=== PATIENT | female | born 1980 | race African-American/Black ===

== ENCOUNTER 2023-11-18 15:28 | Emergency (ER) | payer MEDICARE, MEDICAID ==
[~2023-11-18] VITALS: Ht 154.9 cm; Wt 60.0 kg
[~2023-11-18 15:28] MED LIST: AMIODARONE HCL 50MG/ML 3ML VIAL IV ONE; CALCIUM CHLORIDE 1GM/10ML SYR IV ONE
[2023-11-18] MEDS: SODIUM CHLORIDE 0.9% 1000ML BAG (SEPSIS BOLUS) IV ONE (15:45)
[2023-11-18] MEDS: NOREPINEPHRINE 8MG/250ML PMX 250 ML IV ONE (15:45)
[2023-11-18] MEDS ORDERED: NOREPINEPHRINE 8MG/250ML PMX 250 ML IV ONE (15:46)
[2023-11-18 16:06] VITALS: PULSE 130; RESP 16
[2023-11-18 16:29] LABS: CHLORIDE 133 mEq/L (98-107); POTASSIUM 4.3 mEq/L (3.5-5.1)
[2023-11-18 16:30] LABS: CARBON DIOXIDE 20 mEq/L (21-32)
[2023-11-18 16:31] LABS: CALCIUM 7.8 mg/dL (8.7-10.4)
[2023-11-18 16:36] LABS: CREATININE 2.1 mg/dL (0.6-1.0); GLUCOSE 203 mg/dL (70-105); UREA NITROGEN BLOOD 53 mg/dL (9-23)
[2023-11-18 16:42] LABS: SODIUM 180 mEq/L (136-145); TROPONIN I HIGH SENSITIVITY 89 ng/L (3.0-34)
[2023-11-18 16:44] LABS: BG BASE EXCESS -18.5 mmol/L (-2.0-2.0); BG CARBOXYHEMOGLOBIN 0.3 % (0.5-1.5); BG DEOXYHEMOGLOBIN 0.3 % (0.0-5.0); BG FRACTION INSPIRED OXYGEN 100; BG HCO3 ACT 11.7 mmol/L (22.0-26.0); BG METHEMOGLOBIN 0.1 % (0.0-1.5); BG OXYGEN SATURATION 99.7 % (92.0-98.5); BG OXYHEMOGLOBIN 99.3 % (94.0-97.0); BG PCO2 46.1 mmHg (35.0-45.0); BG PH 7.024 (7.350-7.450); BG PO2 418.3 mmHg (75.0-100.0); BG SAMPLE SITE LEFT BRACHIAL; BG TOTAL HEMOGLOBIN 11.2 g/dL (12.0-18.0); BG VENT MODE VENT - AC
[2023-11-18 16:54] LABS: BASOPHILS % 0.4 % (0.0-2.0); DIFFERENTIAL COMMENT 0; EOSINOPHILS % 2.5 % (0.0-5.0); HEMATOCRIT. 35.7 % (36.0-48.0); HEMOGLOBIN. 10.4 g/dL (12.0-16.0); LYMPHOCYTES % 14.1 % (20.0-50.0); MEAN CORPUSCULAR HEMOGLOBIN 27.1 pg (28.0-32.0); MEAN CORPUSCULAR HGB CONC 29.2 g/dL (31.0-37.0); MEAN CORPUSCULAR VOLUME 92.6 fL (81.0-99.0); MEAN PLATELET VOLUME 9.9 fl (7.4-10.4); PLATELET 253 x1000/uL (130-400); RED BLOOD CELL COUNT 3.85 mill/uL (4.2-5.4); WHITE BLOOD COUNT 23.4 x1000/uL (4.5-11.0)
[2023-11-18 16:57] LABS: HCG SCREEN NEGATIVE
[2023-11-18] MEDS ORDERED: LANS30CA55 MT (17:00)
[2023-11-18] MEDS ORDERED: LACO50TA2 MT (17:00)
[2023-11-18] MEDS ORDERED: TRIH5TAB4 PO (17:00)
[2023-11-18] MEDS ORDERED: CLON2TAB11 MT (17:00)
[2023-11-18 17:10] VITALS: PULSE 109; RESP 20
[2023-11-18] MEDS: VANCOMYCIN 1G PREMIX 200 ML IV ONE (17:23)
[2023-11-18] MEDS: PROPOFOL 10MG/ML 100ML 100 ML IV STA (17:25)
[2023-11-18] MEDS: AZTREONAM 1 G in DEXTROSE 5% WATER 50 ML IV STA (17:43)
[2023-11-18 18:38] LABS: ALANINE AMINOTRANSFERASE 136 IU/L (10-49); ALBUMIN 2.9 g/dL (3.2-4.8); ASPARTATE AMINOTRANSFERASE 189 IU/L (<34); BILIRUBIN DIRECT 0.1 mg/dL (<=3.0); BILIRUBIN TOTAL 0.3 mg/dL (0.1-1.0); PROTEIN TOTAL 6.2 g/dL (6.0-8.3)
[2023-11-18 18:53] VITALS: O2SAT 98
[2023-11-18] MEDS ORDERED: CLONIDINE 0.1MG TABLET PO PRN (19:15)
[2023-11-18] MEDS ORDERED: DIPHENHYDRAMINE 50MG/ML VIAL IV PRN (19:15)
[2023-11-18] MEDS ORDERED: MAGNESIUM/ALUMINUM HYDROXIDE/SIMETHICONE 30ML UDC PO PRN (19:15)
[2023-11-18] MEDS ORDERED: ONDANSETRON HCL 4MG/2ML INJ IV PRN (19:15)
[2023-11-18] MEDS ORDERED: DEXTROSE 50% WATER 50ML SYRINGE IV PRN (19:15)
[2023-11-18] MEDS ORDERED: GUAIFENESIN 200MG/10ML SUGAR FREE UDC PO PRN (19:15)
[2023-11-18] MEDS ORDERED: IPRATROPIUM/ALBUTEROL 0.5-3(2.5)MG/3ML NEB HHN PRN (19:15)
[2023-11-18] MEDS ORDERED: ACETAMINOPHEN 650MG/20.3ML UDC GT PRN ×2 (19:15)
[2023-11-18 19:46] LABS: CLARITY URINE CLOUDY (CLEAR); COLOR URINE YELLOW (YELLOW); GLUCOSE URINE NEGATIVE (NEGATIVE); KETONES URINE NEGATIVE (NEGATIVE); LEUKOCYTE ESTERASE URINE NEGATIVE (NEGATIVE); NITRITE URINE NEGATIVE (NEGATIVE); OCCULT BLOOD URINE 2+ (NEGATIVE); PROTEIN URINE 2+ (NEGATIVE); SPECIFIC GRAVITY URINE 1.015 (1.005-1.030)
[2023-11-18 20:00] LABS: LACTIC ACID > 15.0 mmol/L (0.4-2.0)
[2023-11-18 20:02] LABS: SQUAMOUS EPITHELIAL CELL URINE 1+ /lpf (RARE/1+)
[2023-11-18 20:03] LABS: WBC URINE 0-2 /hpf (0-2)
[2023-11-18 20:04] LABS: BACTERIA URINE 3+
[2023-11-18] MEDS: DEXTROSE 5% WATER 1,000 ML IV SCH (20:15)
[2023-11-18] MEDS: WATER FOR IRRIGATION,STERILE 1,000 ML IRRIG.SOLN IR ONE (20:15)
[2023-11-18] MEDS: LEVOFLOXACIN 500MG PREMIX 100 ML IV SCH (20:20)
[2023-11-18 20:30] VITALS: PULSE 108; RESP 20
[2023-11-18] MEDS: BLOOD SUGAR DIAGNOSTIC STRIP TEST SCH (20:30)
[2023-11-18] MEDS: INSULIN LISPRO 100 UNITS/ML SUBCUT SCH (20:35)
[2023-11-18] MEDS: NOREPINEPHRINE 8MG/250ML PMX 250 ML IV PRN (20:39)
[2023-11-18 20:51] LABS: CHLORIDE 131 mEq/L (98-107); POTASSIUM 4.1 mEq/L (3.5-5.1)
[2023-11-18 20:52] LABS: CARBON DIOXIDE 12 mEq/L (21-32)
[2023-11-18 20:56] LABS: BG BASE EXCESS -19.9 mmol/L (-2.0-2.0); BG CARBOXYHEMOGLOBIN 0.3 % (0.5-1.5); BG DEOXYHEMOGLOBIN 2.7 % (0.0-5.0); BG FRACTION INSPIRED OXYGEN 60; BG HCO3 ACT 9.5 mmol/L (22.0-26.0); BG OXYGEN SATURATION 97.3 % (92.0-98.5); BG PCO2 34.6 mmHg (35.0-45.0); BG PH 7.057 (7.350-7.450); BG PO2 121.2 mmHg (75.0-100.0); BG SAMPLE SITE RIGHT FEMORAL; BG TOTAL HEMOGLOBIN 13.7 g/dL (12.0-18.0); BG VENT MODE VENT - AC
[2023-11-18 20:57] LABS: CREATININE 2.3 mg/dL (0.6-1.0); GLUCOSE 295 mg/dL (70-105); TRIGLYCERIDE 110 mg/dL (0-150); UREA NITROGEN BLOOD 52 mg/dL (9-23)
[2023-11-18 20:58] LABS: LDL CHOLESTEROL 80 mg/dL (5-100)
[2023-11-18 20:59] LABS: CHOLESTEROL 157 mg/dL (<200); HDL CHOLESTEROL 45 mg/dL (>65)
[2023-11-18 21:01] LABS: T4 FREE 1.14 ng/dL (0.89-1.76); THYROID STIMULATING HORMONE 0.79 uIU/mL (0.55-4.78)
[2023-11-18 21:04] LABS: PHOSPHORUS 13.1 mg/dL (2.5-4.9)
[2023-11-18 21:05] LABS: SODIUM 173 mEq/L (136-145)
[2023-11-18] MEDS ORDERED: SODIUM BICARBONATE 8.4% 1 MEQ/ML 50ML SYR IV NR (21:15)
[2023-11-18 21:16] LABS: LACTIC ACID 16.9 mmol/L (0.4-2.0)
[2023-11-18 21:34] VITALS: TEMP 91.6
[2023-11-18 21:48] VITALS: BP 82/54; PULSE 113; RESP 20
[2023-11-18 21:54] LABS: HEMATOCRIT. 36.1 % (36.0-48.0); HEMOGLOBIN. 10.6 g/dL (12.0-16.0); MEAN CORPUSCULAR HEMOGLOBIN 26.4 pg (28.0-32.0); MEAN CORPUSCULAR HGB CONC 29.4 g/dL (31.0-37.0); MEAN PLATELET VOLUME 8.3 fl (7.4-10.4); PLATELET 130 x1000/uL (130-400); RED BLOOD CELL COUNT 4.01 mill/uL (4.2-5.4); RED CELL DISTRIBUTION WIDTH 17.5 % (11.6-14.6)
[2023-11-18 21:55] LABS: CREATINE KINASE 831 IU/L (34-145)
[2023-11-18 21:56] LABS: DIFFERENTIAL COMMENT 1
[2023-11-18 22:01] LABS: D-DIMER 0.87 mg/L FEU (<0.50); PARTIAL THROMBOPLASTIN TIME 41.1 sec (23.4-31.0); TROPONIN I HIGH SENSITIVITY 434 ng/L (3.0-34)
[2023-11-18 22:18] LABS: INR 2.1; PROTHROMBIN TIME 22.4 sec (9.6-11.0)
[2023-11-18 22:28] LABS: ATYPICAL LYMPHOCYTES 4; NUCLEATED RED BLOOD CELLS 3 /100 WBC
[2023-11-18 22:29] LABS: ANISOCYTOSIS 1+; OVALOCYTES 1+; PLATELET ESTIMATE NORMAL
[2023-11-18] MEDS ORDERED: SODIUM BICARBONATE 150 MEQ in DEXTROSE 5% WATER 850 ML IV SCH (22:30)
[2023-11-19 11:42] LABS: *AMPHETAMINES SCREEN URINE NEGATIVE (NEGATIVE); *BARBITURATES SCREEN URINE NEGATIVE (NEGATIVE); *BENZODIAZEPINES SCREEN URINE NEGATIVE (NEGATIVE); METHADONE URINE SCREEN NEGATIVE (NEGATIVE)
[2023-11-19 11:43] LABS: CANNABINOID URINE SCREEN NEGATIVE (NEGATIVE); ECSTASY MDMA SCREEN URINE NEGATIVE (NEGATIVE); OPIATES URINE SCREEN NEGATIVE (NEGATIVE); PHENCYCLIDINE URINE SCREEN NEGATIVE (NEGATIVE)
[2023-11-19 11:53] LABS: *COCAINE SCREEN URINE NEGATIVE (NEGATIVE)
[2023-11-19] MEDS ORDERED: VANCOMYCIN 750MG/150ML (BAXTER) IV SCH (17:00)
[2023-11-19] MEDS ORDERED: LEVOFLOXACIN 250MG PREMIX 50 ML IV SCH (20:00)
== END 2023-11-19 01:54 ==
LOC: ER 15:28 → EDBEDREQTM 18:53 → EDBEDREQ 18:53 → ER 11-19 01:54 → CANBEDREQ 11-20 22:38
DX: I46.9 Cardiac arrest, cause unspecified (principal); A41.9 Sepsis, unspecified organism; R65.21 Severe sepsis with septic shock; J96.00 Acute respiratory failure, unspecified whether with hypoxia or hypercapnia; F84.2 Rett's syndrome; Z88.0 Allergy status to penicillin; F17.200 Nicotine dependence, unspecified, uncomplicated; F19.90 Other psychoactive substance use, unspecified, uncomplicated; J18.8 Other pneumonia, unspecified organism; E87.0 Hyperosmolality and hypernatremia
CPT/HCPCS: 36556; 80061; 80076; 80305; 80048; 82550; 82962; 83036; 84703; 83880; 84439; 83605; 83690; 83735; 84100; 84443; 85025; 85379; 85610; 85730; 86850; 86900; 86901; 87040; 87086; 84484; 87804 ×2; 84145; 93971; 82805; 82375; 31500; 92950; 99291; 87426; 81003; 71045; 96367; 96365; 36600; 93005; 36415; J1956; J0282; J0461; J3490 ×6; J1815; J3475; J2704; J3370; J7060; J7030; 94003; J7070